=== PATIENT | female | born 1990 | race American Indian/Alaskan Native ===

== ENCOUNTER 2021-07-27 08:38 | Emergency (ER) | payer OTHER ==
--- NOTE | 2021-07-27 09:46 | Emergency Department Report ---
ED HPI - General Chief complaint: Vaginal Bleeding Stated complaint: /BLEEDING/CRAMPS Time Seen by Provider: 07/27/21 09:02 Source: patient Mode of arrival: Ambulatory Limitations: No Limitations - History of Present Illness Initial comments: 31-year-old female presents to the ER today with complaints of vaginal bleeding. Patient states that she took a home test last week and it was positive. She states that the vaginal bleeding started last night. 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 She is only has to use pantiliners, but they have not been soaked through. She states that her last menstrual cycle was June 25, 2021. She states that she is been having diffuse abdominal cramping for the past 2 weeks. It has not gotten any worse since the bleeding started. She has not set up an appointment to start care as yet. She is Ab1. Complaint: vaginal bleeding -: days(s) (1) - Related Data Allergies Allergy/AdvReac Type Severity Reaction Status Date / Time No Known Allergies Allergy Verified 07/27/21 08:54 ED Review of Systems ROS: Stated complaint: /BLEEDING/CRAMPS Other details as noted in HPI ED Past Medical Hx - Past Medical History Previous Medical History?: No - Surgical History Past Surgical History?: No - Social History Smoking Status: Never Smoker Substance Use Type: None ED Physical Exam - General Limitations: No Limitations General appearance: alert, in no apparent distress - Neck Neck exam: Present: normal inspection, full ROM. Absent: meningismus - Respiratory Respiratory exam: Present: normal lung sounds bilaterally. Absent: respiratory distress, wheezes, rales, rhonchi - Cardiovascular Cardiovascular Exam: Present: regular rate, normal rhythm, normal heart sounds - GI/Abdominal GI/Abdominal exam: Present: soft. Absent: distended, tenderness, guarding, rebound, rigid - External exam: Present: other ([employer] present ) Speculum exam: Present: normal speculum exam, vaginal discharge (bloody mucousy discharge ). Absent: vaginal bleeding (No active bleeding ), foreign body, laceration Bi-manual exam: Present: normal bi-manual exam. Absent: cervical motion tendernes, adnexal tenderness, adnexal mass, uterine enlargement, uterine tenderness - Neurological Exam Neurological exam: Present: alert, oriented X3, CN II-XII intact, normal gait - Psychiatric Psychiatric exam: Present: normal affect, normal mood - Skin Skin exam: Present: intact ED Course Vital Signs 07/27/21 07/27/21 07/27/21 08:50 08:53 11:18 Temperature 98.8 F Pulse Rate 89 78 Respiratory 14 18 Rate Blood Pressure 109/61 Blood Pressure 124/70 [Left] O2 Sat by Pulse 100 100 Oximetry ED Medical Decision Making - Lab Data Result diagrams: 07/27/21 10:04 07/27/21 10:04 Laboratory Tests 07/27/21 07/27/21 07/27/21 10:04 10:04 10:04 WBC 3.4 L RBC 3.59 L Hgb 10.0 L Hct 31.2 MCV 87 MCH 28 MCHC 32 RDW 15.2 Plt Count 261 Lymph % (Auto) 39.7 H Pacific % (Auto) 8.9 H Eos % (Auto) 3.6 Baso % (Auto) 1.2 Lymph # (Auto) 1.4 Pacific # (Auto) 0.3 Eos # (Auto) 0.1 Baso # (Auto) 0.0 Seg Neutrophils % 46.6 Seg Neutrophils # 1.6 L Sodium 136 L Potassium 4.2 Chloride 102.6 Carbon Dioxide 23 Anion Gap 15 BUN 7 Creatinine 0.5 L Estimated GFR > 60 BUN/Creatinine Ratio 14 Glucose 104 H Calcium 9.2 Total Bilirubin 0.40 AST 13 ALT 8 Alkaline Phosphatase 43 Total Protein 7.7 Albumin 4.4 Albumin/Globulin Ratio 1.3 HCG, Quant 623.2 H Blood Type Ord Rhogam Gestat Weeks 07/27/21 11:22 WBC RBC Hgb Hct MCV MCH MCHC RDW Plt Count Lymph % (Auto) Pacific % (Auto) Eos % (Auto) Baso % (Auto) Lymph # (Auto) Pacific # (Auto) Eos # (Auto) Baso # (Auto) Seg Neutrophils % Seg Neutrophils # Sodium Potassium Chloride Carbon Dioxide Anion Gap BUN Creatinine Estimated GFR BUN/Creatinine Ratio Glucose Calcium Total Bilirubin AST ALT Alkaline Phosphatase Total Protein Albumin Albumin/Globulin Ratio HCG, Quant Blood Type B POSITIVE Ord Rhogam Gestat Weeks pos - Radiology Data Radiology results: report reviewed Patient: ANA KUMAR MR#: [id number] : 1990 Acct:[id number] Age/Sex: 31 / F ADM Date: 07/27/21 Loc: ED Attending Dr: Ordering Physician: PRAVEENA BLACK Date of Service: 07/27/21 Procedure(s): US OB transvaginal Accession Number(s): [id number] cc: PRAVEENA BLACK ULTRASOUND OBSTETRIC INDICATION: with vaginal bleeding, last menstrual cycle on 06/25/2021. TECHNIQUE: Transvaginal. COMPARISON: None available. FINDINGS: GESTATIONAL SAC: No intrauterine gestational sac is identified. YOLK SAC: None seen. EMBRYO/FETUS: None seen. ADNEXA: A 1.4 cm left ovarian dominant follicle is seen with a left adnexal mass measuring 2.3 x 1.5 x 1.8 cm with peripheral vascularity. Centrally in that abnormality is an ovoid structure containing fluid and low level echoes throughout measuring up to 1.5 cm. No pole or yolk sac is clearly seen within that structure. FREE FLUID: None. ADDITIONAL FINDINGS: A probable uterine body fibroid measures 9 x 7 x 9 mm. IMPRESSION: 1. No intrauterine is identified sonographically. 2. Findings concerning for a left adnexal ectopic . Please correlate with the clinical findings. 3. Additional findings as above. Signer Name: John Rosa MD Signed: 07/27/2021 10:44 AM Workstation Name: [id number] Transcribed By: MN Dictated By: John Rsoa MD Electronically Authenticated By: John Rosa MD Signed Date/Time: 07/27/21 1044 DD/ 1040 TD/TT: - Medical Decision Making 1117: Transvaginal ultrasound shows - No intrauterine is identified sonographically. 2. Findings concerning for a left adnexal ectopic . Please correlate with the clinical findings. 3. Additional findings as above. Labs are pending. Discussed ultrasound results with patient. She states that her pain is currently a 5 out of 10. She cannot quite describe the location of her pain she states that it feels like it is all over. Her abd exam show soft non ttp abdomen. Pelvic exam shows that she has small amount of bloody mucousy discharge but no active bleeding. She has no CMT no any adnexal tenderness or mass. She is not toxic or ill appearing. She is neuro intact with normal gait. She is not in any significant distress 1221: labs reviewed -- CBC and CMP unremarkable. UA pending. Repeat vital signs stable. 1239: Discussed case with ROOM SERVICE WAITER on-call, Dr Trammell, given patient low quant of 623, she is concerned that patient could still just be early in and potentially still having IUP despite and that the area is still ultrasound cou ld be related to more of a corpus luteum cyst. At this time she does not recommend starting methotrexate or surgical intervention. She recommends having patient return to the ER in 48 hours for repeat quantitative hCG and ultrasound. 1250: Discussed all results with patient including recommendation for ROOM SERVICE WAITER for her to return Tuesday for repeat quant and ultrasound. Stressed to patient the importance of her returning on Tuesday but also informed that if her pain gets worse or any of his symptoms worsens in any way before incision needs to return immediately to the ER. Patient expressed understanding of all instructions and agree with plan. Patient was stable at time of discharge. Critical care attestation.: If time is entered above; I have spent that time in minutes in the direct care of this critically ill patient, excluding procedure time. ED Disposition Clinical Impression: Threatened miscarriage, Abnormal obstetric ultrasound scan Disposition: HOME / SELF CARE / HOMELESS Is pt being admited?: No Does the pt Need Aspirin: No Condition: Stable Instructions: Threatened Miscarriage, Vaginal Bleeding During , First Trimester, [id number] Additional Instructions: It is very very important that you return to the ER in 48 hours, which will be this Tuesday for repeat quant and ultrasound. In the meantime he can take Tylenol as needed for pain. If at any point the pain worsens especially if it localizes to the right side or with any worsening bleeding return immediately to the ER. Referrals: [facility] [Provider Group] - 3-5 Days [facility] [Provider Group] - 3-5 Days Forms: Work/School Release Form(ED) Time of Disposition: 12:43
--- NOTE | 2021-07-27 10:48 | Ultrasound Report ---
ULTRASOUND OBSTETRIC INDICATION: with vaginal bleeding, last menstrual cycle on 06/25/2021. TECHNIQUE: Transvaginal. COMPARISON: None available. FINDINGS: GESTATIONAL SAC: No intrauterine gestational sac is identified. YOLK SAC: None seen. EMBRYO/FETUS: None seen. ADNEXA: A 1.4 cm left ovarian dominant follicle is seen with a left adnexal mass measuring 2.3 x 1.5 x 1.8 cm with peripheral vascularity. Centrally in that abnormality is an ovoid structure containing fluid and low level echoes throughout measuring up to 1.5 cm. No pole or yolk sac is clearly se en within that structure. FREE FLUID: None. ADDITIONAL FINDINGS: A probable uterine body fibroid measures 9 x 7 x 9 mm. IMPRESSION: 1. No intrauterine is identified sonographically. 2. Findings concerning for a left adnexal ectopic . Please correlate with the clinical findi ngs. 3. Additional findings as above. Signer Name: John Rosa MD Signed: 07/27/2021 10:44 AM Workstation Name: [id number]
[2021-07-27 11:33] LABS: Basophils % (Auto) 1.2 % (0.0-1.8); Eosinophils # (Auto) 0.1 K/mm3 (0.0-0.4); Eosinophils % (Auto) 3.6 % (0.0-4.3); Hematocrit 31.2 % (30.3-42.9); Lymphocytes # (Auto) 1.4 K/mm3 (1.2-5.4); Lymphocytes % (Auto) 39.7 % (13.4-35.0); Mean Corpuscular HGB Conc 32 % (30-34); Mean Corpuscular Volume 87 fl (79-97); Monocytes # (Auto) 0.3 K/mm3 (0.0-0.8); Monocytes % (Auto) 8.9 % (0.0-7.3); Platelet Count 261 K/mm3 (140-440); Red Blood Count 3.59 M/mm3 (3.65-5.03); Red Cell Distribution Width 15.2 % (13.2-15.2)
[2021-07-27 11:42] LABS: Alanine Aminotransferase 8 units/L (7-56); Albumin 4.4 g/dL (3.9-5); Blood Urea Nitrogen 7 mg/dL (7-17); Calcium 9.2 mg/dL (8.4-10.2); Hemolysis Index 3
[2021-07-27 11:43] LABS: BUN/Creatinine Ratio 14
[2021-07-27 12:42] LABS: Bacteria,Urine 2+ /HPF (Negative); Bilirubin,Urine NEG (Negative); Blood,Urine LG (Negative); Color,Urine Yellow (Yellow); Mucus,Urine FEW /HPF; Urobilinogen,Urine < 2.0 mg/dL (<2.0)
[2021-07-27 13:32] VITALS: BP 140/72
== END 2021-07-27 13:32 | disposition home or self-care (01) ==
LOC: ED 08:38
DX: O20.0 Threatened abortion (principal); O28.3 Abnormal ultrasonic finding on antenatal screening of mother
CPT/HCPCS: 36415; 76817; 80053; 81001; 84702; 85025; 86900; 86901; 99284

== ENCOUNTER 2021-07-29 10:34 | Emergency (ER) | payer OTHER ==
--- NOTE | 2021-07-29 11:50 | Emergency Department Report ---
<PRAVEENA BLACK - Last Filed: 07/29/21 16:03> ED HPI - General Chief complaint: Vaginal Bleeding Stated complaint: VAG BLEED (PREG) Time Seen by Provider: 07/29/21 11:45 Source: patient Mode of arrival: Ambulatory Limitations: No Limitations - History of Present Illness Initial comments: 31 of -[place] female return to the ER to check on her . Patient was seen here on July 27 for vaginal bleeding and being . Her last menstrual cycle was June 25, 2021. She had not establish with an ACTUARIAL CONSULTANT visit. She is Ab1. Her work-up at that time showed that she had a quantitative hCG of 623.2. She was B+ and therefore no indication for RhoGam. An ultrasound shows that she had no IUP, and there were findings concerning for left adnexal ectopic . Case was discussed with ACTUARIAL CONSULTANT on-call Dr. Saint Morrell and she recommended that patient return in 48 hours for repeat stephan nt and a another ultrasound to determine whether this was just an early versus true ectopic. Patient states that when she left the ER on January 24 of bleeding did slow down, but this morning it was more of a light bleeding to where she had to use a panty liner. She states that her pain had resolved. She denies any additional symptoms. Complaint: vaginal bleeding, other () -: days(s) - Related Data Home Medications Medication Instructions Recorded Confirmed Last Taken No Known Home Medications [No 07/29/21 07/29/21 Unknown Reported Home Medications] Allergies Allergy/AdvReac Type Severity Reaction Status Date / Time No Known Allergies Allergy Verified 07/27/21 08:54 ED Review of Systems Comment: All other systems reviewed and negative Respiratory: denies: cough, shortness of breath, wheezing Cardiovascular: denies: chest pain, palpitations Gastrointestinal: denies: abdominal pain, nausea, vomiting, diarrhea, constipati on, hematemesis, hematochezia Genitourinary: other (Abnormal vaginal bleeding). denies: urgency, dysuria, frequency, hematuria, discharge Musculoskeletal: denies: back pain, joint swelling, arthralgia Skin: denies: rash, lesions, change in color, change in hair/nails, pruritus Neurological: denies: headache, weakness, numbness, paresthesias, confusion, abnormal gait, vertigo Psychiatric: denies: anxiety, depression, auditory hallucinations, visual hallucinations, homicidal thoughts, suicidal thoughts Hematological/Lymphatic: denies: easy bleeding, easy bruising, swollen glands ED Past Medical Hx - Social History Smoking Status: Never Smoker Substance Use Type: None - Medications Home Medications: Home Medications Medication Instructions Recorded Confirmed Last Taken Type No Known Home Medications [No 07/29/21 07/29/21 Unknown History Reported Home Medications] ED Physical Exam - General Limitations: No Limitations ED Medical Decision Making - Lab Data Result diagrams: 07/29/21 12:47 - Radiology Data Radiology results: report reviewed Patient: ANA KUMAR MR#: [id number] : 1990 Acct:[id number] Age/Sex: 31 / F ADM Date: 07/29/21 Loc: ED Attending Dr: Ordering Physician: PRAVEENA BLACK Date of Service: 07/29/21 Procedure(s): US OB transvaginal Accession Number(s): [id number] cc: PRAVEENA BLACK ULTRASOUND OBSTETRIC INDICATION: with vaginal bleeding, possible ectopic versus cyst. TECHNIQUE: Transvaginal. COMPARISON: OB ultrasound dated 07/27/2021. FINDINGS: GESTATIONAL SAC: No intrauterine gestational sac is identified. YOLK SAC: None seen. EMBRYO/FETUS: None seen. ADNEXA: The previously described left adnexal mass is unchanged with similar peripheral vascularity. Unchanged dominant left ovarian follicle measuring 1.3 cm. No significant abnormality of the right ovary. FREE FLUID: None. ADDITIONAL FINDINGS: The previously described probable uterine body fibroid is unchanged. IMPRESSION: 1. Stable left adnexal mass remains concerning for an ectopic . Please correlate with the clinical findings. 2. No intrauterine is identified sonographically. Signer Name: John Rosa MD Signed: 07/29/2021 12:53 PM Workstation Name: [id number] Transcribed By: FRANTZ Dictated By: John Rosa MD Electronically Authenticated By: Jonh Rosa MD Signed Date/Time: 07/29/21 1253 DD/ 1250 TD/TT: - Medical Decision Making 1337: CBC stable. Patient Quant HCG today shows drop from 623.2 to 437.2. OB transvag US shows . Stable left adnexal mass remains concerning for an ectopic . Please correlate with the clinical findings. 2. No intrauterine is identified sonographically. Discussed case with OBGYN production department supervisor, Dr Beyer, she recommend initiating methotrexate treatment. Patient to recieved first dose today, and 2 additional doses on day 4 and 7 including repeat quant HCGs. Discussed findings with patient and that US still concerning for ectopic. Discussed methotrexate and the reason for the treatment. Patient also assures me she can return on day 4 and 7 for additional doses. ED Disposition Clinical Impression: Ectopic Disposition: HOME / SELF CARE / HOMELESS Is pt being admited?: No Does the pt Need Aspirin: No Condition: Stable Instructions: Methotrexate Treatment for an Ectopic , Care After, Ectopic , [id number] Additional Instructions: You received your initial dose of methotrexate today. You will need to return on day for which is going to be August 01, and on the seventh which will be August 04 for 2 additional doses and repeat hCG quant. Return here to the ER for these additional treatments. You may experience increased abdominal cramping or increased bleeding while being treated. You can take Tylenol and/or ibuprofen for pain. Return sooner to the ER if anything changes or worsens. Referrals: PRIMARY CARE, [Primary Care Provider] - 3-5 Days Forms: AMA Form, Work/School Release Form(ED) Time of Disposition: 14:28 <KUSHAL BRIGGS - Last Filed: 07/29/21 18:34> ED Review of Systems ROS: Stated complaint: VAG BLEED (PREG) Other details as noted in HPI ED Course Vital Signs 07/29/21 07/29/21 11:38 11:58 Temperature 98.7 F 98.2 F Pulse Rate 89 78 Respiratory 18 18 Rate Blood Pressure 96/50 121/87 [Right] O2 Sat by Pulse 100 99 Oximetry ED Medical Decision Making - Lab Data Result diagrams: 07/29/21 12:47 Critical care attestation.: If time is entered above; I have spent that time in minutes in the direct care of this critically ill patient, excluding procedure time. ED Disposition Is pt being admited?: No Does the pt Need Aspirin: No
[2021-07-29 12:31] VITALS: BP 121/87
--- NOTE | 2021-07-29 12:58 | Ultrasound Report ---
ULTRASOUND OBSTETRIC INDICATION: with vaginal bleeding, possible ectopic versus cyst. TECHNIQUE: Transvaginal. COMPARISON: OB ultrasound dated 07/27/2021. FINDINGS: GESTATIONAL SAC: No intrauterine gestational sac is identified. YOLK SAC: None seen. EMBRYO/FETUS: None seen. ADNEXA: The previously described left adnexal mass is unchanged with similar peripheral vascularity. Unchanged dominant left ovarian follicle measuring 1.3 cm. No significant abnormality of the right ov alyssa. FREE FLUID: None. ADDITIONAL FINDINGS: The previously described probable uterine body fibroid is unchanged. IMPRESSION: 1. Stable left adnexal mass remains concerning for an ectopic . Please correlate with the cl inical findings. 2. No intrauterine is identified sonographically. Signer Name: John Rosa MD Signed: 07/29/2021 12:53 PM Workstation Name: [id number]
[2021-07-29 13:11] LABS: Basophils % (Auto) 0.9 % (0.0-1.8); Eosinophils # (Auto) 0.1 K/mm3 (0.0-0.4); Eosinophils % (Auto) 2.4 % (0.0-4.3); Hemoglobin 10.1 gm/dl (10.1-14.3); Lymphocytes # (Auto) 1.3 K/mm3 (1.2-5.4); Lymphocytes % (Auto) 34.7 % (13.4-35.0); Mean Corpuscular HGB Conc 32 % (30-34); Mean Corpuscular Volume 87 fl (79-97); Monocytes # (Auto) 0.4 K/mm3 (0.0-0.8); Monocytes % (Auto) 10.8 % (0.0-7.3); Platelet Count 289 K/mm3 (140-440); Red Blood Count 3.66 M/mm3 (3.65-5.03)
== END 2021-07-29 15:12 | disposition home or self-care (01) ==
LOC: ED 10:34
DX: O00.90 Unspecified ectopic pregnancy without intrauterine pregnancy (principal)
CPT/HCPCS: 36415; 76817; 84702; 85025; 96372; 99284; J9260

== ENCOUNTER 2021-08-01 09:40 | Emergency (ER) | payer OTHER ==
[2021-08-01 09:58] VITALS: BP 103/52
--- NOTE | 2021-08-01 10:35 | Emergency Department Report ---
ED Female HPI - General Chief complaint: Medical Clearance Stated complaint: METHOTREXATE SHOT Time Seen by Provider: 08/01/21 09:59 Source: patient, old records reviewed Mode of arrival: Ambulatory Limitations: No Limitations - History of Present Illness Initial comments: 31 year old female returns to ED for second methotrexate IM injection. Patient was seen here on 07/27/21 and again on 07/29/2021 for bleeding and preg. Patient visit on 07/29/2021 confirmed leg ectopic and she also had a decrease in quad compared to visit on 07/27/2021. After discussing the case with DIRECTOR PRIVATE MUSIC THERAPY AGENCY on-call Dr. Beyer, it was recommended that patient get started on methotrexate. Patient received her first dose which was considered day 1 on July 29, 2021 when she was instructed to return for 2 additional doses, on day 4, and then again day 7. Patient is here today for her second dose. Patient reports that she has any bleeding or pain since she was seen on July 29, 2021. She reports no symptoms at this time. MD Complaint: other (Here for 2nd methotrexate IM injection) -: days(s) - Related Data Home Medications Medication Instructions Recorded Confirmed Last Taken No Known Home Medications [No 07/29/21 07/29/21 Unknown Reported Home Medications] Allergies Allergy/AdvReac Type Severity Reaction Status Date / Time No Known Allergies Allergy Verified 08/01/21 09:53 ED Review of Systems ROS: Stated complaint: METHOTREXATE SHOT Other details as noted in HPI Comment: All other systems reviewed and negative Constitutional: denies: chills, fever ENT: denies: ear pain, throat pain, dental pain, hearing loss, epistaxis, congestion Respiratory: denies: cough, shortness of breath, SOB with exertion, SOB at rest, wheezing Cardiovascular: denies: chest pain, palpitations, dyspnea on exertion, edema, syncope, paroxysmal nocturnal dyspnea Gastrointestinal: denies: abdominal pain, nausea, diarrhea Genitourinary: denies: urgency, dysuria, frequency, hematuria, discharge, abnormal menses, dyspareunia Musculoskeletal: denies: back pain, joint swelling, arthralgia Skin: denies: rash, lesions, change in color, change in hair/nails, pruritus Neurological: denies: headache, weakness, numbness, paresthesias, confusion, abnormal gait, vertigo Psychiatric: denies: anxiety, depression, auditory hallucinations, visual hallucinations, suicidal thoughts Hematological/Lymphatic: denies: easy bleeding, easy bruising, swollen glands ED Past Medical Hx - Past Medical History Previous Medical History?: No - Surgical History Past Surgical History?: No - Social History Smoking Status: Never Smoker Substance Use Type: None - Medications Home Medications: Home Medications Medication Instructions Recorded Confirmed Last Taken Type No Known Home Medications [No 07/29/21 07/29/21 Unknown History Reported Home Medications] ED Physical Exam - General Limitations: No Limitations General appearance: alert, in no apparent distress - Head Head exam: Present: atraumatic, normocephalic, normal inspection - Eye Eye exam: Present: normal appearance, PERRL, EOMI Pupils: Present: normal accommodation - Respiratory Respiratory exam: Absent: respiratory distress - Cardiovascular Cardiovascular Exam: Present: regular rate - GI/Abdominal GI/Abdominal exam: Present: soft. Absent: distended, tenderness, guarding, rebound - Neurological Exam Neurological exam: Present: alert, oriented X3, CN II-XII intact, normal gait - Psychiatric Psychiatric exam: Present: normal affect, normal mood - Skin Skin exam: Present: intact ED Course Vital Signs 08/01/21 09:58 Temperature 98.5 F Pulse Rate 71 Respiratory 18 Rate Blood Pressure 103/52 O2 Sat by Pulse 100 Oximetry ED Medical Decision Making - Medical Decision Making Patient received her second dose of methotrexate and tolerated well. Her quant has dropped to 144 from 437. She has no pain no abdominal bleeding or any symptoms. Patient understands that she will need to return on July for her last and final methotrexate injection. Patient was stable at time of discharge. Critical care attestation.: If time is entered above; I have spent that time in minutes in the direct care of this critically ill patient, excluding procedure time. ED Disposition Clinical Impression: Ectopic Disposition: HOME / SELF CARE / HOMELESS Is pt being admited?: No Does the pt Need Aspirin: No Condition: Stable Instructions: Methotrexate Treatment for an Ectopic , Care After, Ectopic , [id number] Additional Instructions: You will need to return on July FOR LAST IM METHOTREXATE INJECTION. Return sooner if any worsens or changes. Referrals: PRIMARY CARE, [Primary Care Provider] - 3-5 Days Time of Disposition: 11:58
== END 2021-08-01 12:06 | disposition home or self-care (01) ==
LOC: ED 09:40
DX: O00.90 Unspecified ectopic pregnancy without intrauterine pregnancy (principal); Z3A.01 Less than 8 weeks gestation of pregnancy
CPT/HCPCS: 36415; 84702; 96372; 99283; J9260

== ENCOUNTER 2021-08-05 11:21 | Emergency (ER) | payer OTHER ==
--- NOTE | 2021-08-05 13:54 | Emergency Department Report ---
ED Female HPI - General Chief complaint: Medical Clearance Stated complaint: INJECTION Time Seen by Provider: 08/05/21 13:37 Source: patient Mode of arrival: Ambulatory Limitations: No Limitations - History of Present Illness Initial comments: 31 yo presents to ER for 3rd methotrexate injection. She tells me she was instructed to come here. SEE prior visits for detailed HPI Pt denies any abd pain, fever or chillls. VS normal on exam in triage MD Complaint: other Associated Symptoms: denies other symptoms - Related Data Sexually active: Yes Home Medications Medication Instructions Recorded Confirmed Last Taken No Known Home Medications [No 07/29/21 07/29/21 Unknown Reported Home Medications] Allergies Allergy/AdvReac Type Severity Reaction Status Date / Time No Known Allergies Allergy Verified 08/05/21 13:34 ED Review of Systems ROS: Stated complaint: INJECTION Other details as noted in HPI Comment: All other systems reviewed and negative ED Past Medical Hx - Past Medical History Previous Medical History?: Yes - Surgical History Past Surgical History?: No - Family History Family history: no significant - Social History Smoking Status: Never Smoker Substance Use Type: None - Medications Home Medications: Home Medications Medication Instructions Recorded Confirmed Last Taken Type No Known Home Medications [No 07/29/21 07/29/21 Unknown History Reported Home Medications] ED Physical Exam - General Limitations: No Limitations General appearance: alert, in no apparent distress - Head Head exam: Present: atraumatic, normocephalic - Eye Eye exam: Present: normal appearance - ENT ENT exam: Present: mucous membranes moist - Neck Neck exam: Present: normal inspection - Respiratory Respiratory exam: Present: normal lung sounds bilaterally. Absent: respiratory distress - Cardiovascular Cardiovascular Exam: Present: regular rate, normal rhythm. Absent: systolic murmur, diastolic murmur, rubs, gallop - GI/Abdominal GI/Abdominal exam: Present: soft, normal bowel sounds - Extremities Exam Extremities exam: Present: normal inspection - Back Exam Back exam: Present: normal inspection - Neurological Exam Neurological exam: Present: alert, oriented X3 - Psychiatric Psychiatric exam: Present: normal affect, normal mood - Skin Skin exam: Present: warm, dry, intact, normal color. Absent: rash ED Course Vital Signs 08/05/21 13:31 Temperature 98.3 F Pulse Rate 69 Respiratory 16 Rate Blood Pressure 117/41 [Left] O2 Sat by Pulse 100 Oximetry ED Medical Decision Making - Medical Decision Making Vital Signs 08/05/21 13:31 Temperature 98.3 F Pulse Rate 69 Respiratory 16 Rate Blood Pressure 117/41 [Left] O2 Sat by Pulse 100 Oximetry EMR reviewed Discussed with Dr Molina VENEGAS- no further methotrexate to be given. Pt will follow up in the office. Pt dc home with dc plan of care including follow up instructions which she verbalizes understanding of. - Differential Diagnosis sp ectopic Critical care attestation.: If time is entered above; I have spent that time in minutes in the direct care of this critically ill patient, excluding procedure time. ED Disposition Clinical Impression: Abnormal obstetric ultrasound scan Disposition: HOME / SELF CARE / HOMELESS Is pt being admited?: No Does the pt Need Aspirin: No Condition: Stable Additional Instructions: follow up with obgyn referral below Referrals: ANAYELI MONTEJO MD [Staff Physician] - 3-5 Days Time of Disposition: 13:53
[2021-08-05 14:16] VITALS: BP 114/78
== END 2021-08-05 14:15 | disposition home or self-care (01) ==
LOC: ED 11:21
DX: O28.3 Abnormal ultrasonic finding on antenatal screening of mother (principal)
CPT/HCPCS: 99282